=== PATIENT | male | born 1995 | race Caucasian/White ===

== ENCOUNTER 2022-10-05 09:55 | Emergency (ER) | payer OTHER, SELFPAY ==
[2022-10-05 10:05] VITALS: BP 113/64; PULSE 56; RESP 14; O2SAT 99; BMI 23.7
--- NOTE | 2022-10-05 10:12 | W.ED.DENTAL ---
HPI - Dental/Oral General: Chief complaint: Dental/Oral Stated complaint: Dental pain Time Seen by Provider: 10/05/22 10:12 Source: patient Mode of arrival: ambulatory Limitations: no limitations History of Present Illness: Patient is a nice 27-year-old male who presents to ED today with a complaint of right lower dental pain. Patient states last night while eating he bent down and immediately noticed excruciating pain to one of his right lower molars. Patient has had significant discomfort since. He did contact a dentist (Dr. Otero) he was going to see him early October but recommended he get placed on antibiotics. MD Complaint: tooth pain and tooth injury Teeth map: 1. Onset (ago): hour(s) Duration: constant Severity: severe Severity scale (1-10): 10 Relieving factors: nothing Exacerbating factors: chewing Context: history of dental caries, trauma (mechanism) and poor dental care Associated symptoms: Reports no associated symptoms; Denies fever(s) or odynophagia Treatment prior to arrival: topical analgesic and oral analgesic Review of Systems Const: Denies: fever(s) ENMT: Reports: dental pain; Denies: throat pain, odynophagia, hoarseness, swelling of lips/tongue, oral sores, bleeding gums, dry mouth or halitosis Musc: Denies: neck pain Neuro: Denies: headache(s) Physical Exam Const: COMMON NORMALS: no acute distress, average body habitus, patient oriented x3, no limitations, healthy appearing, alert and well nourished GENERAL APPEARANCE: cooperative ORIENTATION/CONSCIOUSNESS: Yes awake, Yes oriented to person, Yes oriented to place and Yes oriented to time HENMT: MOUTH: Normal oral and palatal mucosa present, lip normal, tongue normal and Normal salivary glands and ducts present TEETH & GINGIVA: Yes caries, Yes poor dentition and Yes other (no dental abscess; no [place]'s) TEETH & GINGIVA IMAGES: 1. fractured vs severely decayed molars THROAT: posterior oropharynx normal, tonsils normal and uvula midline Neuro: COMMON NORMALS: patient oriented x3 SENSORIUM/ORIENTATION: Yes alert, Yes oriented to person, Yes oriented to place and Yes oriented to time Course Vital Signs: Vital signs: Vital Signs Pulse Rate 56 L 10/05/22 10:05 Respiratory Rate 14 10/05/22 10:05 Blood Pressure 113/64 10/05/22 10:05 Pulse Oximetry 99 10/05/22 10:05 Oxygen Delivery Me thod 10/05/22 10:05 MDM - Dental/Oral Medical Decision Making Patient will be placed on antibiotics and given a small amount of pain medication. Return to ED precautions given. Recommend follow-up with dentist as scheduled. Discharge Plan Discharge Patient Disposition: Home Clinical Impression: Dental caries, Toothache Fracture of tooth Qualifiers: Encounter type: initial encounter Fracture type: closed Qualified Code(s): S02.5XXA - Fracture of tooth (traumatic), initial encounter for closed fracture Condition: Stable Prescriptions: New penicillin V potassium 500 mg tablet 500 mg PO Q8H 7 Days Qty: 21 0RF tramadol 50 mg tablet 50 mg PO Q6H PRN (Reason: pain) Qty: 14 0RF Discharge Orders: Discharge ED (Routine); Ordered 10/05/22 Ordered By: Amanda Prasad Referrals: Livia Daniel APN [Primary Care Provider] - Patient Instructions: Toothache (ED), Opioid Safety, Pain Management, Chipped or Broken Tooth Coding Level of Care Code ED 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
== END 2022-10-05 10:36 | disposition home or self-care (01) ==
PROVIDERS: Emergency Provider Physician Assistant; PCP Nurse Practitioner Family
DX: K02.9 Dental caries, unspecified (principal); S02.5XXA Fracture of tooth (traumatic), initial encounter for closed fracture; X58.XXXA Exposure to other specified factors, initial encounter
CPT/HCPCS: 99283